=== PATIENT | male | born 1965 | race Caucasian/White ===

== ENCOUNTER 2017-07-07 09:25 | Day surgery (SDC) | payer OTHER ==
[2017-07-06 10:11] VITALS: BMI 40.0
[2017-07-07] MEDS ORDERED: Clindamycin/D5W 600 mg/50 ml Premix Bag ONE (10:07)
[2017-07-07 10:10] LABS: #Basophils 0.1 thou/uL (0.0-0.2); #Eosinphils 0.2 thou/uL (0.0-0.7); #Lymphocytes 1.6 thou/uL (1.20-3.40); #Monocytes 0.7 thou/uL (0.11-0.59); #Neutrophils 3.7 thou/uL (1.40-6.50); %Basophils 1.7 % (0.0-1.0); %Eosinophils 3.9 % (0.0-10.0); %Lymphocytes 24.8 % (21.0-51.0); %Monocytes 10.7 % (0.0-10.0); %Neutrophils 58.9 % (42.0-75.0); Hemoglobin 16.5 g/dL (14.0-18.0); Mean Corpuscular HGB CONC 33.8 g/dL (32.0-36.0); Mean Corpuscular Hemoglobin 31.8 pg (27.0-31.0); Mean Corpuscular Volume 94.1 fl (80.0-94.0); Mean Platelet Volume 7.8 fL (7.4-10.4); Platelet Count 218 thou/uL (130-400); RBC Distribution Width 11.8 % (11.5-14.5); Red Blood Cell (RBC) Count 5.19 mill/uL (4.70-6.10); White Blood Cell (WBC) Count 6.2 thou/uL (4.8-10.8)
[2017-07-07] MEDS ORDERED: Diprivan 20 ML ONE (10:20)
[2017-07-07 10:27] LABS: Anion Gap 13 mmol/L (10-20); BUN (Urea Nitrogen) 19 mg/dL (8.9-20.6); Calc. Creatinine Clearance 188 mL/min (70-130); Calcium 9.8 mg/dL (7.8-10.44); Carbon Dioxide 24 mmol/L (22-29); Chloride 104 mmol/L (98-107); Estimated GFR-MDRD 90; Glucose 103 mg/dL (70-105); Potassium 4.4 mmol/L (3.5-5.1); Sodium 137 mmol/L (136-145)
[2017-07-07] MEDS ORDERED: Fentanyl 100 MCG/2 ML VIAL ONE (10:49)
[2017-07-07] MEDS ORDERED: Bupivacaine HCl 0.5%/Epinephrine 1:200,000/PF 30 ml Vial ONE (11:48)
[2017-07-07] MEDS ORDERED: Lidocaine 2% w/Epinephrine 1:200K 20 ML VIAL ONE (11:48)
[2017-07-07] MEDS ORDERED: Propofol 200 MG/20 ML VIAL ONE (12:32)
[2017-07-07] MEDS ORDERED: Lidocaine 1% PF 5 ML VIAL ONE (12:32)
[2017-07-07] MEDS ORDERED: HYDROcodone/Acetaminophen 5/325 mg Tablet ONE (13:59)
--- NOTE | 2017-07-07 19:06 | OP ---
DATE OF PROCEDURE: 07/07/2017 PREOPERATIVE DIAGNOSIS: Right knee medial and lateral meniscus tears. POSTOPERATIVE DIAGNOSES: 1. Lateral meniscus tear including both radial as well as cleavage components in the body and posterior horn of the lateral meniscus. 2. 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 SURGEON: Shakeel Ramirez M.D. INTEGRATION CONSULTANT: None. BLOOD LOSS: Minimal. COMPLICATIONS: None. ANESTHESIA: He did have general anesthetic as well as a local knee block. PROCEDURES PERFORMED: 1. Right knee arthroscopy, partial meniscectomy. 2. Chondroplasty patella and trochlea. DISPOSITION: He did go to the recovery room in stable condition. INDICATIONS: Raghav is a 51-year-old male, who comes in complaining of knee pain , catching, and swelling. At this time, he opted to have surgery. DESCRIPTION OF PROCEDURE: After all appropriate consent forms were explained and signed; he was taken back to the operating room and at this time was given general anesthetic. Tourniquet was placed on the right thigh and the leg was then placed in an arthroscopic leg ayon. It was then prepped and draped in the standard surgical fashion. Limb was exsanguinated and tourniquet taken up to 300 mmHg. An inferolateral portal was established and the scope was placed into the knee joint. A needle localization technique was then used to make a medial working portal. Diagnostic arthroscopy commenced in the notch. ACL and PCL were probed and found to be intact. The medial compartment was probed and the femur, tibia and meniscus were found to be intact. At this time, we then turned our attention to the lateral compartment and there was a complex tear of lateral meniscus including radial and horizontal cleavage components and at this time, partial lateral meniscectomy was performed using meniscal biter and shaver back to a stable base. The gutters were swept through and no loose bodies were noted. Patellofemoral joint was evaluated and had some significant chondromalacia on the patella and the trochlea with some unstable chondral flaps and these grade II and III areas were debrided of any loose chondral flaps and once this was done, the knee was gone through one more time looking for any more loose bodies or anything else that needed to be treated and indeed there was none. Therefore, the scope was removed, the knee was drained, and portals were closed with simple nylon stitch. Bulky sterile dressing was applied and the tourniquet let down. Toes pinked up nicely. The patient was awakened and taken to recovery in stable condition. All counts were correct at the end of the case and he received preoperative IV antibiotics. OTONIEL
--- NOTE | 2017-07-08 07:17 | EKG ---
Test Reason : PREOP Blood Pressure : / mmHG Vent. Rate : 073 BPM Atrial Rate : 073 BPM P-R Int : 134 ms QRS Dur : 098 ms QT Int : 382 ms P-R-T Axes : 064 006 026 degrees QTc Int : 420 ms Sinus rhythm with occasional Premature ventricular complexes Otherwise normal ECG When compared with ECG of 05-OCT-2016 16:32, Premature ventricular complexes are now Present Criteria for Anterior infarct are no longer Present Confirmed by TATA JOHNSTON, SBart ([id number]) on 07/08/2017 7:17:06 AM Referred By: IERO Confirmed By:DR. Nai PAYTON MD
== END 2017-07-07 14:05 | disposition home or self-care (01) ==
LOC: SDC 09:25
PROVIDERS: ATTEND Orthopaedic Surgery
PROC: 0SBC4ZZ Excision of Right Knee Joint, Percutaneous Endoscopic Approach (ICD-10-PCS; principal; 2017-07-07)
DX: S83.271A Complex tear of lateral meniscus, current injury, right knee, initial encounter (principal); S83.241A Other tear of medial meniscus, current injury, right knee, initial encounter; M94.261 Chondromalacia, right knee; I10 Essential (primary) hypertension; Z79.899 Other long term (current) drug therapy; Z88.0 Allergy status to penicillin; Z90.49 Acquired absence of other specified parts of digestive tract; Z98.890 Other specified postprocedural states
CPT/HCPCS: 80048; 85025; 93005; 93010; G8978-GP-CI; G8979-GP-CI; G8980-GP-CI; J0670; J2001; J2704; J3010; J3490